=== PATIENT | male | born 1995 | race Caucasian/White ===

== ENCOUNTER 2019-07-10 05:23 | Emergency (ER) | payer SELFPAY ==
[~2019-07-10] VITALS: Ht 170.2 cm; Wt 81.6 kg
--- NOTE | 2019-07-10 05:26 | NUR ---
PT RUBY BLS TO ER BED 07
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
[2019-07-10 05:43] VITALS: BP 152/76
--- NOTE | 2019-07-10 05:46 | NUR ---
DR TINSLEY AT BEDSIDE PERFORMING STAPLE PROCEDURE.
[2019-07-10] MEDS ORDERED: IBUPROFEN 600 MG TAB PO ONE (05:55)
--- NOTE | 2019-07-10 05:57 | NUR ---
PT MEDICATED WITH MOTRIN PO. TOLERATED WELL
[2019-07-10 06:29] VITALS: BP 152/76
== END 2019-07-10 06:29 | disposition home or self-care (01) ==
LOC: MED 05:23
DX: S01.01XA Laceration without foreign body of scalp, initial encounter (principal); F17.200 Nicotine dependence, unspecified, uncomplicated; F12.90 Cannabis use, unspecified, uncomplicated; W22.8XXA Striking against or struck by other objects, initial encounter; Y93.89 Activity, other specified; Y92.89 Other specified places as the place of occurrence of the external cause; Y99.8 Other external cause status
CPT/HCPCS: 12001; 12013; 99282; 99292